=== PATIENT | female | born 1980 | race Caucasian/White ===

== ENCOUNTER 2021-12-12 10:57 | Emergency (ER) | payer BC ==
[~2021-12-12] VITALS: Ht 170.2 cm; Wt 88.5 kg
[2021-12-12 11:50] LABS: BASOPHILS ABSOLUTE AUTO 0.03 K/mm3 (0.00-0.23); BASOPHILS PERCENT AUTO 1 % (0-2); EOSINOPHILS ABSOLUTE AUTO 0.01 K/mm3 (0.00-0.68); EOSINOPHILS PERCENT AUTO 0 % (0-6); Hematocrit 44.3 % (33.0-51.0); Hemoglobin 14.6 g/dL (11.5-16.0); IMMATURE GRAN PERCENT AUTO 0 % (0-1); LYMPHOCYTES ABSOLUTE AUTO 0.95 K/mm3 (0.84-5.20); LYMPHOCYTES PERCENT AUTO 27 % (21-46); MONOCYTES ABSOLUTE AUTO 0.18 K/mm3 (0.16-1.47); MONOCYTES PERCENT AUTO 5 % (4-13); Mean Corpuscular HGB 30.7 pg (26.0-34.0); Mean Corpuscular Volume 93 fL (80-100); Mean Platelet Volume 9.3 fL (9.1-12.4); NEUTROPHILS ABSOLUTE AUTO 2.35 K/mm3 (1.96-9.15); NEUTROPHILS PERCENT AUTO 67 % (41-73); Platelet Count 263 K/mm3 (150-400); RDW Coefficient Variation 13.1 % (11.7-14.2); RDW Standard Deviation 44.6 fL (35.1-46.3); Red Blood Cell Count 4.76 M/mm3 (3.80-5.20); White Blood Cell Count 3.52 K/mm3 (4.00-11.30)
[2021-12-12 11:56] LABS: Source, Urine Clean Catch
[2021-12-12 12:10] LABS: Appearance, Urine Clear (Clear); Bilirubin, Urine Neg (Neg); Blood, Urine Neg (Neg); Color, Urine Yellow (P-Yellow); Glucose Qualitative, Urine Neg (Neg); Ketones, Urine Neg (Neg); Leukocyte Esterase, Urine Neg (Neg); Nitrite, Urine Neg (Neg); Protein, Urine Neg (Neg); Urobilinogen, Urine NORM (Normal)
[2021-12-12 12:18] LABS: Albumin/Globulin Ratio 1.1 (0.8-1.8); Bilirubin, Total 0.4 mg/dL (0.1-1.0); Bun/Creatinine Ratio 7.8 (12.0-20.0); Calcium, Blood 9.2 mg/dL (8.5-10.1); Creatinine, Blood 0.77 mg/dL (0.40-1.00); Globulin, Blood 3.5 g/dL (2.2-4.0); Potassium, Blood 3.3 mmol/L (3.5-5.5); Total Protein, Blood 7.5 g/dL (6.4-8.2)
[2021-12-12] MEDS ORDERED: ESCI20 PO (13:13)
[2021-12-12] MEDS ORDERED: GABA300 PO (13:13)
[2021-12-12] MEDS ORDERED: BUSP10 PO (13:13)
[2021-12-12] MEDS ORDERED: HYDR1TAB94 PO (16:41)
[2021-12-12] MEDS ORDERED: ONDA4ODT MM (16:41)
== END 2021-12-12 17:22 | disposition home or self-care (01) ==
LOC: ER 10:57
PROVIDERS: Physician Assistant
DX: N83.201 Unspecified ovarian cyst, right side (principal); R11.0 Nausea; F17.290 Nicotine dependence, other tobacco product, uncomplicated; Z88.2 Allergy status to sulfonamides; Z79.899 Other long term (current) drug therapy
CPT/HCPCS: 74177; 76857; 80053; 81003; 83690; 84703; 85025; J1885; J2405; J3010; Q9967

== ENCOUNTER 2021-12-17 07:46 | Emergency (ER) | payer BC ==
[~2021-12-17] VITALS: Ht 170.2 cm; Wt 88.5 kg
[~2021-12-17 07:46] MED LIST: BUSP10 PO; ESCI20 PO; GABA300 PO; HYDR1TAB94 PO; ONDA4ODT MM
[2021-12-17] MEDS ORDERED: HYDR1TAB94 PO (09:33)
[2021-12-17] MEDS ORDERED: IBUP800 PO (09:33)
== END 2021-12-17 09:45 | disposition home or self-care (01) ==
LOC: ER 07:46
DX: R10.31 Right lower quadrant pain (principal); F17.290 Nicotine dependence, other tobacco product, uncomplicated
CPT/HCPCS: A9270

== ENCOUNTER 2022-01-06 20:33 | Inpatient (IN) | payer BC ==
[~2022-01-06] VITALS: Ht 170.2 cm; Wt 90.6 kg
[~2022-01-06 20:33] MED LIST changes: +IBUP800 PO
[2022-01-06 21:11] LABS: BASOPHILS ABSOLUTE AUTO 0.04 K/mm3 (0.00-0.23); BASOPHILS PERCENT AUTO 1 % (0-2); EOSINOPHILS ABSOLUTE AUTO 0.03 K/mm3 (0.00-0.68); EOSINOPHILS PERCENT AUTO 1 % (0-6); Hematocrit 42.2 % (33.0-51.0); Hemoglobin 13.6 g/dL (11.5-16.0); IMMATURE GRAN ABSOLUTE AUTO 0.01 K/mm3 (0.00-0.10); IMMATURE GRAN PERCENT AUTO 0 % (0-1); LYMPHOCYTES ABSOLUTE AUTO 2.53 K/mm3 (0.84-5.20); LYMPHOCYTES PERCENT AUTO 42 % (21-46); MONOCYTES ABSOLUTE AUTO 0.37 K/mm3 (0.16-1.47); MONOCYTES PERCENT AUTO 6 % (4-13); Mean Corpuscular HGB 30.1 pg (26.0-34.0); Mean Corpuscular HGB Conc 32.2 g/dL (31.5-36.5); Mean Corpuscular Volume 93 fL (80-100); Mean Platelet Volume 9.6 fL (9.1-12.4); NEUTROPHILS ABSOLUTE AUTO 3.11 K/mm3 (1.96-9.15); NEUTROPHILS PERCENT AUTO 51 % (41-73); Platelet Count 269 K/mm3 (150-400); RDW Coefficient Variation 13.4 % (11.7-14.2); RDW Standard Deviation 45.9 fL (35.1-46.3); Red Blood Cell Count 4.52 M/mm3 (3.80-5.20); White Blood Cell Count 6.09 K/mm3 (4.00-11.30)
[2022-01-06 21:30] LABS: Albumin, Blood 3.9 g/dL (3.4-5.0); Albumin/Globulin Ratio 1.1 (0.8-1.8); Bilirubin, Total 0.2 mg/dL (0.1-1.0); Bun/Creatinine Ratio 13.1 (12.0-20.0); Calcium, Blood 9.2 mg/dL (8.5-10.1); Creatinine, Blood 0.91 mg/dL (0.40-1.00); Globulin, Blood 3.4 g/dL (2.2-4.0); Potassium, Blood 3.8 mmol/L (3.5-5.5); Total Protein, Blood 7.3 g/dL (6.4-8.2)
[2022-01-06 23:20] LABS: Source, Urine Clean Catch
[2022-01-06 23:23] LABS: Appearance, Urine Clear (Clear); Bilirubin, Urine Neg (Neg); Blood, Urine Neg (Neg); Color, Urine Yellow (P-Yellow); Glucose Qualitative, Urine Neg (Neg); Ketones, Urine Neg (Neg); Leukocyte Esterase, Urine Neg (Neg); Nitrite, Urine Neg (Neg); Protein, Urine Neg (Neg); Urobilinogen, Urine 1+ (Normal)
[2022-01-07] MEDS ORDERED: Percocet 10-321 EACH PO (11:53)
[2022-01-07] MEDS ORDERED: ONDA4 PO (11:53)
--- NOTE | 2022-01-07 12:04 | NUR ---
DISCHARGE: PT DC TO HOME AT THIS TIME WITH SPOUSE. PT DOES NOT NEED SURGICAL INTERVENTION AT THIS TIME. IV DC'D WNL. VERBALIZED UNDERSTANDING OF INSTRUCTIONS, FOLLOW UP AND PROBLEMS TO REPORT. SCRIPTS GIVEN. PT LEFT AMBULATORY TO CAR WITH BELONGINGS.
== END 2022-01-07 12:25 | disposition home or self-care (01) | DRG 392 ==
LOC: ER 20:33 → ERHOLD 01-07 02:56 → SURS 01-07 06:35
PROVIDERS: Physician Assistant; ADMIT Surgery
DX: R10.31 Right lower quadrant pain (principal); F17.210 Nicotine dependence, cigarettes, uncomplicated; F41.9 Anxiety disorder, unspecified; K38.1 Appendicular concretions; N83.202 Unspecified ovarian cyst, left side; F17.290 Nicotine dependence, other tobacco product, uncomplicated; Z90.710 Acquired absence of both cervix and uterus; Z79.899 Other long term (current) drug therapy; Z98.890 Other specified postprocedural states; Z88.2 Allergy status to sulfonamides; Z79.891 Long term (current) use of opiate analgesic
CPT/HCPCS: 36415; 74176; 76830; 76856; 80053; 81003; 81025; 85025; J1170; J1885; J2270; J2405; J2543; J7030